=== PATIENT | male | born 1970 | race Caucasian/White ===

== ENCOUNTER 2021-05-13 11:44 | Inpatient (IN) | payer OTHER ==
[2021-05-13] MEDS ORDERED: LORazepam 2 MG TABLET PO ONE (13:24)
[2021-05-13] MEDS ORDERED: MAGNESIUM HYDROX 2400MG/30ML ORAL SUSPENSION 30 ML CUP PO PRN (13:24)
[2021-05-13] MEDS ORDERED: ACETAMINOPHEN 325 MG TABLET (FP) PO PRN ×2 (13:24)
[2021-05-13] MEDS ORDERED: BISMUTH SUBSALICYLATE 524 MG/30 ML PO PRN (13:24)
[2021-05-13] MEDS ORDERED: MAG HYDROX/AL HYDROX/SIMETH 30 ML UNIT-DOSE CUP PO PRN (13:24)
[2021-05-13] MEDS ORDERED: ONDANSETRON *ODT* 4 MG TABLET SL PRN (13:24)
[2021-05-13] MEDS ORDERED: LORazepam 1 MG TABLET PO PRN (13:24)
[2021-05-13] MEDS ORDERED: IBUPROFEN 400 MG TABLET (FP) PO PRN (13:24)
[2021-05-13] MEDS ORDERED: NICOTINE 10 MG CARTRIDGE (INHALER) IH PRN (13:24)
[2021-05-13] MEDS ORDERED: MENTHOL/PHENOL 1 EACH UD MM PRN (13:24)
[2021-05-13] MEDS ORDERED: MAGNESIUM CITRATE 300 ML BOTTLE PO PRN (13:24)
[2021-05-13] MEDS: hydrOXYzine PAMOATE 25 MG CAPSULE (FP) PO SCH ×2 (15:01→18:12)
[2021-05-13] MEDS: METHOCARBAMOL 500 MG TABLET PO PRN (15:01)
[2021-05-13] MEDS: NICOTINE 21 MG/24 HOURS TOPICAL PATCH TD SCH (15:04)
[2021-05-13] MEDS: LORazepam 2 MG TABLET PO SCH ×2 (18:12→23:02)
[2021-05-13] MEDS: INSULIN SLIDING SCALE (NOVOLOG) 1 VIAL SQ SCH ×2 (18:13→23:38)
[2021-05-13] MEDS: MELATONIN 5 MG TABLETS PO SCH (22:59)
[2021-05-13] MEDS: hydrOXYzine PAMOATE 25 MG CAPSULE (FP) PO PRN (22:59)
[2021-05-13] MEDS: INSULIN (LEVEMIR) 100 UNITS/ML UNITS SQ SCH (23:37)
[2021-05-13] MEDS: THIAMINE HCL 100 MG TABLET (FP) PO SCH (23:38)
[2021-05-14] MEDS: LORazepam 2 MG TABLET PO SCH ×4 (06:14→22:14)
[2021-05-14] MEDS: INSULIN SLIDING SCALE (NOVOLOG) 1 VIAL SQ SCH ×4 (07:10→22:17)
[2021-05-14] MEDS: methaDONE HCL 40 MG DISPERSABLE TABLET PO SCH (10:10)
[2021-05-14] MEDS: PRENATAL VITAMINS W/ FOLIC ACID TABLET (FP) PO SCH (10:14)
[2021-05-14] MEDS: hydrOXYzine PAMOATE 25 MG CAPSULE (FP) PO PRN (10:14)
[2021-05-14] MEDS: NICOTINE 21 MG/24 HOURS TOPICAL PATCH TD SCH (11:14)
[2021-05-14] MEDS: THIAMINE HCL 100 MG TABLET (FP) PO SCH (22:12)
[2021-05-14] MEDS: MELATONIN 5 MG TABLETS PO SCH (22:12)
[2021-05-14] MEDS: METHOCARBAMOL 500 MG TABLET PO PRN (22:13)
[2021-05-14] MEDS: INSULIN (LEVEMIR) 100 UNITS/ML UNITS SQ SCH (22:15)
[2021-05-15] MEDS: LORazepam 1 MG TABLET PO SCH ×4 (07:38→22:35)
[2021-05-15] MEDS: INSULIN SLIDING SCALE (NOVOLOG) 1 VIAL SQ SCH ×4 (07:41→22:45)
[2021-05-15] MEDS: methaDONE HCL 40 MG DISPERSABLE TABLET PO SCH (10:12)
[2021-05-15] MEDS: PRENATAL VITAMINS W/ FOLIC ACID TABLET (FP) PO SCH (10:13)
[2021-05-15] MEDS: METHOCARBAMOL 500 MG TABLET PO PRN (10:13)
[2021-05-15] MEDS: NICOTINE 21 MG/24 HOURS TOPICAL PATCH TD SCH (10:13)
[2021-05-15] MEDS: hydrOXYzine PAMOATE 25 MG CAPSULE (FP) PO PRN (10:13)
[2021-05-15] MEDS: MELATONIN 5 MG TABLETS PO SCH (22:35)
[2021-05-15] MEDS: THIAMINE HCL 100 MG TABLET (FP) PO SCH (22:35)
[2021-05-15] MEDS: INSULIN (LEVEMIR) 100 UNITS/ML UNITS SQ SCH (22:44)
[2021-05-16] MEDS ORDERED: LORazepam 0.5 MG TABLET PO PRN
[2021-05-16] MEDS: methaDONE HCL 40 MG DISPERSABLE TABLET PO SCH (06:25)
[2021-05-16] MEDS: LORazepam 0.5 MG TABLET PO SCH ×4 (06:26→22:16)
[2021-05-16] MEDS: INSULIN SLIDING SCALE (NOVOLOG) 1 VIAL SQ SCH ×4 (06:29→22:16)
[2021-05-16] MEDS: PRENATAL VITAMINS W/ FOLIC ACID TABLET (FP) PO SCH (10:34)
[2021-05-16] MEDS: NICOTINE 21 MG/24 HOURS TOPICAL PATCH TD SCH (10:34)
[2021-05-16 13:10] LABS: HEMATOCRIT 38.7 % (35.4-49); HEMOGLOBIN 12.8 GM/dL (11.7-16.9); MCH 29.2 pg (25.7-33.7); MCHC 33.1 g/dl (32.0-35.9); MEAN CELL VOLUME 88.1 fl (80-96); PLATELET COUNT 227 10^3/uL (134-434); RBC 4.39 M/mm3 (4.00-5.60); RDW 13.2 % (11.9-15.9); WHITE BLOOD COUNT 5.6 K/mm3 (4.0-10.0)
[2021-05-16 13:17] LABS: ALBUMIN 2.9 g/dl (3.4-5.0); BLOOD UREA NITROGEN 16.8 mg/dL (7-18); CALCIUM 8.8 mg/dL (8.5-10.1)
[2021-05-16 13:21] LABS: CREATININE 1.1 mg/dL (0.55-1.3)
[2021-05-16 13:22] LABS: BILIRUBIN,TOTAL 0.6 mg/dL (0.2-1); TOT PROT 7.7 g/dl (6.4-8.2)
[2021-05-16] MEDS: MELATONIN 5 MG TABLETS PO SCH (22:16)
[2021-05-16] MEDS: INSULIN (LEVEMIR) 100 UNITS/ML UNITS SQ SCH (22:16)
[2021-05-16] MEDS: METHOCARBAMOL 500 MG TABLET PO PRN (22:16)
[2021-05-16] MEDS: THIAMINE HCL 100 MG TABLET (FP) PO SCH (22:16)
[2021-05-17] MEDS ORDERED: LORazepam 0.5 MG TABLET PO ONE (05:00)
[2021-05-17] MEDS: methaDONE HCL 40 MG DISPERSABLE TABLET PO SCH (06:51)
[2021-05-17] MEDS: INSULIN SLIDING SCALE (NOVOLOG) 1 VIAL SQ SCH (06:58)
[2021-05-17 09:20] VITALS: BP 122/82; PULSE 88; TEMP 96.8
[2021-05-17] MEDS: NICOTINE 21 MG/24 HOURS TOPICAL PATCH TD SCH (10:06)
[2021-05-17] MEDS: PRENATAL VITAMINS W/ FOLIC ACID TABLET (FP) PO SCH (10:06)
== END 2021-05-17 11:25 | disposition other institution (70) | DRG 773 ==
LOC: YASAS 11:44 → Y3N 13:33
PROVIDERS: ADMIT Allergy & Immunology; ATTEND Allergy & Immunology
PROC: HZ2ZZZZ Detoxification Services for Substance Abuse Treatment (ICD-10-PCS; principal; 2021-05-13)
DX: F10.230 Alcohol dependence with withdrawal, uncomplicated (principal); F11.20 Opioid dependence, uncomplicated; F14.20 Cocaine dependence, uncomplicated; F17.210 Nicotine dependence, cigarettes, uncomplicated; E11.9 Type 2 diabetes mellitus without complications; B18.2 Chronic viral hepatitis C; Z79.4 Long term (current) use of insulin; Z91.14 Patient's other noncompliance with medication regimen; Z86.59 Personal history of other mental and behavioral disorders
CPT/HCPCS: 36415; 80053; 82962; 85027; 86780; C9803; U0003; U0005

== ENCOUNTER 2021-05-17 11:36 | Inpatient (IN) | payer OTHER ==
[2021-05-17] MEDS ORDERED: MAG HYDROX/AL HYDROX/SIMETH 30 ML UNIT-DOSE CUP PO PRN (11:54)
[2021-05-17] MEDS ORDERED: guaiFENesin 200 MG/10 ML 10 ML UNIT-DOSE CUPS PO PRN (11:54)
[2021-05-17] MEDS ORDERED: LOPERAMIDE HCL 2 MG CAPSULE PO PRN (11:54)
[2021-05-17] MEDS ORDERED: IBUPROFEN 400 MG TABLET (FP) PO PRN (11:54)
[2021-05-17] MEDS ORDERED: ACETAMINOPHEN 325 MG TABLET (FP) PO PRN (11:54)
[2021-05-17] MEDS ORDERED: NICOTINE 10 MG CARTRIDGE (INHALER) IH PRN ×2 (11:54→12:01)
[2021-05-17] MEDS ORDERED: P-EPHED 60MG/TRIPROLIDI 2.5MG TABLET PO PRN (11:54)
[2021-05-17] MEDS ORDERED: MAGNESIUM CITRATE 300 ML BOTTLE PO PRN (11:54)
[2021-05-17] MEDS ORDERED: MENTHOL/PHENOL 1 EACH UD MM PRN (11:54)
[2021-05-17] MEDS ORDERED: MAGNESIUM HYDROX 2400MG/30ML ORAL SUSPENSION 30 ML CUP PO PRN (11:54)
[2021-05-17] MEDS: INSULIN SLIDING SCALE (NOVOLOG) 1 VIAL SQ SCH ×2 (16:32→21:20)
[2021-05-17] MEDS ORDERED: INSULIN (NOVOLOG) ASPART 100 UNITS/ML 10ML VIAL ONE (16:33)
[2021-05-17] MEDS: MELATONIN 5 MG TABLETS PO SCH (21:16)
[2021-05-17] MEDS: THIAMINE HCL 100 MG TABLET (FP) PO SCH (21:16)
[2021-05-17] MEDS: INSULIN (LEVEMIR) 100 UNITS/ML UNITS SQ SCH (21:20)
[2021-05-18] MEDS: methaDONE HCL 40 MG DISPERSABLE TABLET PO SCH (06:15)
[2021-05-18] MEDS: INSULIN SLIDING SCALE (NOVOLOG) 1 VIAL SQ SCH ×4 (06:17→21:37)
[2021-05-18] MEDS: PRENATAL VITAMINS W/ FOLIC ACID TABLET (FP) PO SCH (10:20)
[2021-05-18] MEDS: hydrOXYzine PAMOATE 25 MG CAPSULE (FP) PO PRN (10:21)
[2021-05-18] MEDS: NICOTINE 7 MG/24 HOURS TOPICAL PATCH TD SCH (10:21)
[2021-05-18] MEDS ORDERED: INSULIN (NOVOLOG) ASPART 100 UNITS/ML 10ML VIAL ONE ×2 (13:32→21:40)
[2021-05-18] MEDS: INSULIN (LEVEMIR) 100 UNITS/ML UNITS SQ SCH (21:40)
[2021-05-18] MEDS: THIAMINE HCL 100 MG TABLET (FP) PO SCH (21:41)
[2021-05-18] MEDS: MELATONIN 5 MG TABLETS PO SCH (21:42)
[2021-05-19] MEDS: methaDONE HCL 40 MG DISPERSABLE TABLET PO SCH (06:35)
[2021-05-19] MEDS: INSULIN SLIDING SCALE (NOVOLOG) 1 VIAL SQ SCH ×4 (07:37→21:32)
[2021-05-19] MEDS ORDERED: PT OWN MED DRAWER 7, Y5N ONE (09:08)
[2021-05-19] MEDS: PRENATAL VITAMINS W/ FOLIC ACID TABLET (FP) PO SCH (10:07)
[2021-05-19] MEDS: hydrOXYzine PAMOATE 25 MG CAPSULE (FP) PO PRN (10:08)
[2021-05-19] MEDS: NICOTINE 7 MG/24 HOURS TOPICAL PATCH TD SCH (10:08)
[2021-05-19] MEDS ORDERED: INSULIN (NOVOLOG) ASPART 100 UNITS/ML 10ML VIAL ONE ×3 (12:05→21:54)
[2021-05-19] MEDS: INSULIN (LEVEMIR) 100 UNITS/ML UNITS SQ SCH (21:31)
[2021-05-19] MEDS: MELATONIN 5 MG TABLETS PO SCH (21:31)
[2021-05-19] MEDS: THIAMINE HCL 100 MG TABLET (FP) PO SCH (21:31)
[2021-05-20] MEDS: methaDONE HCL 40 MG DISPERSABLE TABLET PO SCH (06:32)
[2021-05-20] MEDS: INSULIN SLIDING SCALE (NOVOLOG) 1 VIAL SQ SCH ×4 (06:34→21:20)
[2021-05-20] MEDS: hydrOXYzine PAMOATE 25 MG CAPSULE (FP) PO PRN ×2 (10:03→21:18)
[2021-05-20] MEDS: NICOTINE 7 MG/24 HOURS TOPICAL PATCH TD SCH (10:03)
[2021-05-20] MEDS: PRENATAL VITAMINS W/ FOLIC ACID TABLET (FP) PO SCH (10:03)
[2021-05-20] MEDS ORDERED: INSULIN (NOVOLOG) ASPART 100 UNITS/ML 10ML VIAL ONE ×3 (11:34→21:20)
[2021-05-20] MEDS: THIAMINE HCL 100 MG TABLET (FP) PO SCH (21:17)
[2021-05-20] MEDS: MELATONIN 5 MG TABLETS PO SCH (21:17)
[2021-05-20] MEDS: INSULIN (LEVEMIR) 100 UNITS/ML UNITS SQ SCH (21:20)
[2021-05-21] MEDS: methaDONE HCL 40 MG DISPERSABLE TABLET PO SCH (06:47)
[2021-05-21] MEDS: INSULIN SLIDING SCALE (NOVOLOG) 1 VIAL SQ SCH ×4 (06:50→21:13)
[2021-05-21] MEDS: hydrOXYzine PAMOATE 25 MG CAPSULE (FP) PO PRN ×2 (06:52→21:12)
[2021-05-21] MEDS: NICOTINE 7 MG/24 HOURS TOPICAL PATCH TD SCH (09:52)
[2021-05-21] MEDS: PRENATAL VITAMINS W/ FOLIC ACID TABLET (FP) PO SCH (09:52)
[2021-05-21] MEDS ORDERED: INSULIN (NOVOLOG) ASPART 100 UNITS/ML 10ML VIAL ONE ×3 (11:39→21:35)
[2021-05-21] MEDS: MELATONIN 5 MG TABLETS PO SCH (21:10)
[2021-05-21] MEDS: THIAMINE HCL 100 MG TABLET (FP) PO SCH (21:10)
[2021-05-21] MEDS: INSULIN (LEVEMIR) 100 UNITS/ML UNITS SQ SCH (21:13)
[2021-05-22] MEDS: methaDONE HCL 40 MG DISPERSABLE TABLET PO SCH (06:09)
[2021-05-22] MEDS: INSULIN SLIDING SCALE (NOVOLOG) 1 VIAL SQ SCH ×4 (06:10→21:20)
[2021-05-22] MEDS: NICOTINE 7 MG/24 HOURS TOPICAL PATCH TD SCH (09:45)
[2021-05-22] MEDS: hydrOXYzine PAMOATE 25 MG CAPSULE (FP) PO PRN ×2 (09:45→21:19)
[2021-05-22] MEDS: PRENATAL VITAMINS W/ FOLIC ACID TABLET (FP) PO SCH (09:45)
[2021-05-22] MEDS ORDERED: INSULIN (NOVOLOG) ASPART 100 UNITS/ML 10ML VIAL ONE (12:04)
[2021-05-22] MEDS: MELATONIN 5 MG TABLETS PO SCH (21:18)
[2021-05-22] MEDS: THIAMINE HCL 100 MG TABLET (FP) PO SCH (21:18)
[2021-05-22] MEDS: INSULIN (LEVEMIR) 100 UNITS/ML UNITS SQ SCH (22:28)
[2021-05-23] MEDS: INSULIN SLIDING SCALE (NOVOLOG) 1 VIAL SQ SCH ×4 (06:03→22:11)
[2021-05-23] MEDS: methaDONE HCL 40 MG DISPERSABLE TABLET PO SCH (06:03)
[2021-05-23] MEDS: hydrOXYzine PAMOATE 25 MG CAPSULE (FP) PO PRN ×2 (10:07→22:11)
[2021-05-23] MEDS: PRENATAL VITAMINS W/ FOLIC ACID TABLET (FP) PO SCH (10:07)
[2021-05-23] MEDS: NICOTINE 7 MG/24 HOURS TOPICAL PATCH TD SCH (10:08)
[2021-05-23] MEDS ORDERED: INSULIN (NOVOLOG) ASPART 100 UNITS/ML 10ML VIAL ONE (12:22)
[2021-05-23] MEDS: MELATONIN 5 MG TABLETS PO SCH (22:11)
[2021-05-23] MEDS: THIAMINE HCL 100 MG TABLET (FP) PO SCH (22:11)
[2021-05-23] MEDS: INSULIN (LEVEMIR) 100 UNITS/ML UNITS SQ SCH (22:12)
[2021-05-24] MEDS: methaDONE HCL 40 MG DISPERSABLE TABLET PO SCH (06:20)
[2021-05-24] MEDS: INSULIN SLIDING SCALE (NOVOLOG) 1 VIAL SQ SCH ×4 (06:22→21:28)
[2021-05-24] MEDS: PRENATAL VITAMINS W/ FOLIC ACID TABLET (FP) PO SCH (09:57)
[2021-05-24] MEDS: hydrOXYzine PAMOATE 25 MG CAPSULE (FP) PO PRN ×2 (09:58→21:27)
[2021-05-24] MEDS: NICOTINE 7 MG/24 HOURS TOPICAL PATCH TD SCH (10:55)
[2021-05-24] MEDS ORDERED: INSULIN (NOVOLOG) ASPART 100 UNITS/ML 10ML VIAL ONE (12:25)
[2021-05-24] MEDS: MELATONIN 5 MG TABLETS PO SCH (21:27)
[2021-05-24] MEDS: THIAMINE HCL 100 MG TABLET (FP) PO SCH (21:27)
[2021-05-24] MEDS: INSULIN (LEVEMIR) 100 UNITS/ML UNITS SQ SCH (21:28)
[2021-05-25] MEDS: methaDONE HCL 40 MG DISPERSABLE TABLET PO SCH (06:41)
[2021-05-25] MEDS: INSULIN SLIDING SCALE (NOVOLOG) 1 VIAL SQ SCH ×4 (06:43→21:08)
[2021-05-25] MEDS: PRENATAL VITAMINS W/ FOLIC ACID TABLET (FP) PO SCH (10:17)
[2021-05-25] MEDS: hydrOXYzine PAMOATE 25 MG CAPSULE (FP) PO PRN ×2 (10:17→21:07)
[2021-05-25] MEDS: NICOTINE 7 MG/24 HOURS TOPICAL PATCH TD SCH (10:18)
[2021-05-25] MEDS ORDERED: INSULIN (NOVOLOG) ASPART 100 UNITS/ML 10ML VIAL ONE ×2 (16:32→21:56)
[2021-05-25] MEDS: THIAMINE HCL 100 MG TABLET (FP) PO SCH (21:06)
[2021-05-25] MEDS: MELATONIN 5 MG TABLETS PO SCH (21:06)
[2021-05-25] MEDS: INSULIN (LEVEMIR) 100 UNITS/ML UNITS SQ SCH (21:08)
[2021-05-26] MEDS: methaDONE HCL 40 MG DISPERSABLE TABLET PO SCH (06:23)
[2021-05-26] MEDS: INSULIN SLIDING SCALE (NOVOLOG) 1 VIAL SQ SCH ×4 (06:25→21:46)
[2021-05-26] MEDS: PRENATAL VITAMINS W/ FOLIC ACID TABLET (FP) PO SCH (09:51)
[2021-05-26] MEDS: NICOTINE 7 MG/24 HOURS TOPICAL PATCH TD SCH (09:52)
[2021-05-26] MEDS: hydrOXYzine PAMOATE 25 MG CAPSULE (FP) PO PRN ×2 (09:52→21:45)
[2021-05-26] MEDS: THIAMINE HCL 100 MG TABLET (FP) PO SCH (21:45)
[2021-05-26] MEDS: MELATONIN 5 MG TABLETS PO SCH (21:45)
[2021-05-26] MEDS: INSULIN (LEVEMIR) 100 UNITS/ML UNITS SQ SCH (21:47)
[2021-05-27] MEDS: methaDONE HCL 40 MG DISPERSABLE TABLET PO SCH (06:33)
[2021-05-27] MEDS: INSULIN SLIDING SCALE (NOVOLOG) 1 VIAL SQ SCH ×4 (06:35→22:45)
[2021-05-27] MEDS: hydrOXYzine PAMOATE 25 MG CAPSULE (FP) PO PRN ×2 (10:12→21:06)
[2021-05-27] MEDS: NICOTINE 7 MG/24 HOURS TOPICAL PATCH TD SCH (10:12)
[2021-05-27] MEDS: PRENATAL VITAMINS W/ FOLIC ACID TABLET (FP) PO SCH (10:12)
[2021-05-27] MEDS ORDERED: INSULIN (NOVOLOG) ASPART 100 UNITS/ML 10ML VIAL ONE (11:51)
[2021-05-27] MEDS: THIAMINE HCL 100 MG TABLET (FP) PO SCH (21:06)
[2021-05-27] MEDS: MELATONIN 5 MG TABLETS PO SCH (21:06)
[2021-05-27] MEDS: INSULIN (LEVEMIR) 100 UNITS/ML UNITS SQ SCH (21:07)
[2021-05-28] MEDS: methaDONE HCL 40 MG DISPERSABLE TABLET PO SCH (06:21)
[2021-05-28] MEDS: INSULIN SLIDING SCALE (NOVOLOG) 1 VIAL SQ SCH ×4 (06:23→22:01)
[2021-05-28] MEDS: hydrOXYzine PAMOATE 25 MG CAPSULE (FP) PO PRN ×2 (09:59→21:26)
[2021-05-28] MEDS: PRENATAL VITAMINS W/ FOLIC ACID TABLET (FP) PO SCH (09:59)
[2021-05-28] MEDS: NICOTINE 7 MG/24 HOURS TOPICAL PATCH TD SCH (10:00)
[2021-05-28] MEDS ORDERED: INSULIN (NOVOLOG) ASPART 100 UNITS/ML 10ML VIAL ONE (11:58)
[2021-05-28] MEDS: THIAMINE HCL 100 MG TABLET (FP) PO SCH (21:27)
[2021-05-28] MEDS: MELATONIN 5 MG TABLETS PO SCH (21:27)
[2021-05-28] MEDS: INSULIN (LEVEMIR) 100 UNITS/ML UNITS SQ SCH (22:02)
[2021-05-29] MEDS: methaDONE HCL 40 MG DISPERSABLE TABLET PO SCH (06:33)
[2021-05-29] MEDS: INSULIN SLIDING SCALE (NOVOLOG) 1 VIAL SQ SCH ×4 (06:36→21:07)
[2021-05-29] MEDS: PRENATAL VITAMINS W/ FOLIC ACID TABLET (FP) PO SCH (10:26)
[2021-05-29] MEDS: NICOTINE 7 MG/24 HOURS TOPICAL PATCH TD SCH (10:26)
[2021-05-29] MEDS: hydrOXYzine PAMOATE 25 MG CAPSULE (FP) PO PRN ×2 (10:28→21:05)
[2021-05-29] MEDS: THIAMINE HCL 100 MG TABLET (FP) PO SCH (21:05)
[2021-05-29] MEDS: MELATONIN 5 MG TABLETS PO SCH (21:05)
[2021-05-29] MEDS ORDERED: INSULIN (NOVOLOG) ASPART 100 UNITS/ML 10ML VIAL ONE (21:06)
[2021-05-29] MEDS: INSULIN (LEVEMIR) 100 UNITS/ML UNITS SQ SCH (21:07)
[2021-05-30] MEDS: methaDONE HCL 40 MG DISPERSABLE TABLET PO SCH (06:32)
[2021-05-30] MEDS: INSULIN SLIDING SCALE (NOVOLOG) 1 VIAL SQ SCH ×4 (06:35→21:38)
[2021-05-30] MEDS: NICOTINE 7 MG/24 HOURS TOPICAL PATCH TD SCH (09:54)
[2021-05-30] MEDS: PRENATAL VITAMINS W/ FOLIC ACID TABLET (FP) PO SCH (09:54)
[2021-05-30] MEDS: hydrOXYzine PAMOATE 25 MG CAPSULE (FP) PO PRN ×2 (09:54→21:36)
[2021-05-30] MEDS ORDERED: INSULIN (NOVOLOG) ASPART 100 UNITS/ML 10ML VIAL ONE ×3 (12:18→16:30)
[2021-05-30] MEDS: MELATONIN 5 MG TABLETS PO SCH (21:36)
[2021-05-30] MEDS: THIAMINE HCL 100 MG TABLET (FP) PO SCH (21:36)
[2021-05-30] MEDS: INSULIN (LEVEMIR) 100 UNITS/ML UNITS SQ SCH (21:38)
[2021-05-31] MEDS: methaDONE HCL 40 MG DISPERSABLE TABLET PO SCH (06:48)
[2021-05-31] MEDS: INSULIN SLIDING SCALE (NOVOLOG) 1 VIAL SQ SCH ×4 (06:54→21:10)
[2021-05-31] MEDS: PRENATAL VITAMINS W/ FOLIC ACID TABLET (FP) PO SCH (10:41)
[2021-05-31] MEDS: hydrOXYzine PAMOATE 25 MG CAPSULE (FP) PO PRN ×2 (10:41→21:08)
[2021-05-31] MEDS: NICOTINE 7 MG/24 HOURS TOPICAL PATCH TD SCH (10:42)
[2021-05-31] MEDS: THIAMINE HCL 100 MG TABLET (FP) PO SCH (21:08)
[2021-05-31] MEDS: MELATONIN 5 MG TABLETS PO SCH (21:08)
[2021-05-31] MEDS: INSULIN (LEVEMIR) 100 UNITS/ML UNITS SQ SCH (21:10)
[2021-06-01] MEDS: methaDONE HCL 40 MG DISPERSABLE TABLET PO SCH (06:20)
[2021-06-01] MEDS: INSULIN SLIDING SCALE (NOVOLOG) 1 VIAL SQ SCH ×4 (06:22→21:09)
[2021-06-01] MEDS: NICOTINE 7 MG/24 HOURS TOPICAL PATCH TD SCH (10:05)
[2021-06-01] MEDS: PRENATAL VITAMINS W/ FOLIC ACID TABLET (FP) PO SCH (10:05)
[2021-06-01] MEDS: AMMONIUM LACTATE 12% LOTION 225 GM BOTTLE TP PRN (10:06)
[2021-06-01] MEDS: hydrOXYzine PAMOATE 25 MG CAPSULE (FP) PO PRN ×3 (10:07→21:06)
[2021-06-01] MEDS: THIAMINE HCL 100 MG TABLET (FP) PO SCH (21:06)
[2021-06-01] MEDS: MELATONIN 5 MG TABLETS PO SCH (21:06)
[2021-06-01] MEDS ORDERED: INSULIN (NOVOLOG) ASPART 100 UNITS/ML 10ML VIAL ONE (21:08)
[2021-06-01] MEDS: INSULIN (LEVEMIR) 100 UNITS/ML UNITS SQ SCH (21:09)
[2021-06-02] MEDS: methaDONE HCL 40 MG DISPERSABLE TABLET PO SCH (06:32)
[2021-06-02] MEDS: INSULIN SLIDING SCALE (NOVOLOG) 1 VIAL SQ SCH ×4 (06:35→21:46)
[2021-06-02] MEDS: hydrOXYzine PAMOATE 25 MG CAPSULE (FP) PO PRN ×4 (06:35→21:46)
[2021-06-02] MEDS: NICOTINE 7 MG/24 HOURS TOPICAL PATCH TD SCH (10:23)
[2021-06-02] MEDS: PRENATAL VITAMINS W/ FOLIC ACID TABLET (FP) PO SCH (10:23)
[2021-06-02] MEDS: THIAMINE HCL 100 MG TABLET (FP) PO SCH (21:46)
[2021-06-02] MEDS: MELATONIN 5 MG TABLETS PO SCH (21:47)
[2021-06-02] MEDS: AMMONIUM LACTATE 12% LOTION 225 GM BOTTLE TP PRN (21:47)
[2021-06-02] MEDS: INSULIN (LEVEMIR) 100 UNITS/ML UNITS SQ SCH (21:47)
[2021-06-03] MEDS: methaDONE HCL 40 MG DISPERSABLE TABLET PO SCH (06:25)
[2021-06-03] MEDS: INSULIN SLIDING SCALE (NOVOLOG) 1 VIAL SQ SCH ×4 (06:26→21:06)
[2021-06-03] MEDS: PRENATAL VITAMINS W/ FOLIC ACID TABLET (FP) PO SCH (09:34)
[2021-06-03] MEDS: hydrOXYzine PAMOATE 25 MG CAPSULE (FP) PO PRN ×3 (09:34→21:04)
[2021-06-03] MEDS: NICOTINE 7 MG/24 HOURS TOPICAL PATCH TD SCH (09:34)
[2021-06-03] MEDS ORDERED: INSULIN (NOVOLOG) ASPART 100 UNITS/ML 10ML VIAL ONE (16:26)
[2021-06-03] MEDS: MELATONIN 5 MG TABLETS PO SCH (21:04)
[2021-06-03] MEDS: THIAMINE HCL 100 MG TABLET (FP) PO SCH (21:04)
[2021-06-03] MEDS: INSULIN (LEVEMIR) 100 UNITS/ML UNITS SQ SCH (21:06)
[2021-06-04] MEDS: methaDONE HCL 40 MG DISPERSABLE TABLET PO SCH (06:23)
[2021-06-04] MEDS: hydrOXYzine PAMOATE 25 MG CAPSULE (FP) PO PRN ×4 (06:24→21:33)
[2021-06-04] MEDS: INSULIN SLIDING SCALE (NOVOLOG) 1 VIAL SQ SCH ×4 (06:28→21:36)
[2021-06-04] MEDS: NICOTINE 7 MG/24 HOURS TOPICAL PATCH TD SCH (10:03)
[2021-06-04] MEDS: PRENATAL VITAMINS W/ FOLIC ACID TABLET (FP) PO SCH (10:03)
[2021-06-04] MEDS ORDERED: INSULIN (NOVOLOG) ASPART 100 UNITS/ML 10ML VIAL ONE (16:46)
[2021-06-04] MEDS: THIAMINE HCL 100 MG TABLET (FP) PO SCH (21:33)
[2021-06-04] MEDS: MELATONIN 5 MG TABLETS PO SCH (21:34)
[2021-06-04] MEDS: INSULIN (LEVEMIR) 100 UNITS/ML UNITS SQ SCH (21:36)
[2021-06-05] MEDS: methaDONE HCL 40 MG DISPERSABLE TABLET PO SCH (06:19)
[2021-06-05] MEDS: hydrOXYzine PAMOATE 25 MG CAPSULE (FP) PO PRN ×3 (06:22→21:10)
[2021-06-05] MEDS: INSULIN SLIDING SCALE (NOVOLOG) 1 VIAL SQ SCH ×4 (06:25→21:11)
[2021-06-05] MEDS ORDERED: INSULIN (NOVOLOG) ASPART 100 UNITS/ML 10ML VIAL ONE (07:16)
[2021-06-05] MEDS: NICOTINE 7 MG/24 HOURS TOPICAL PATCH TD SCH (10:38)
[2021-06-05] MEDS: PRENATAL VITAMINS W/ FOLIC ACID TABLET (FP) PO SCH (10:38)
[2021-06-05] MEDS: AMMONIUM LACTATE 12% LOTION 225 GM BOTTLE TP PRN (10:39)
[2021-06-05] MEDS: MELATONIN 5 MG TABLETS PO SCH (21:10)
[2021-06-05] MEDS: THIAMINE HCL 100 MG TABLET (FP) PO SCH (21:10)
[2021-06-05] MEDS: INSULIN (LEVEMIR) 100 UNITS/ML UNITS SQ SCH (21:11)
[2021-06-06] MEDS: hydrOXYzine PAMOATE 25 MG CAPSULE (FP) PO PRN ×3 (06:24→22:02)
[2021-06-06] MEDS: methaDONE HCL 40 MG DISPERSABLE TABLET PO SCH (06:24)
[2021-06-06] MEDS: INSULIN SLIDING SCALE (NOVOLOG) 1 VIAL SQ SCH ×4 (07:47→22:05)
[2021-06-06] MEDS: NICOTINE 7 MG/24 HOURS TOPICAL PATCH TD SCH (09:49)
[2021-06-06] MEDS: PRENATAL VITAMINS W/ FOLIC ACID TABLET (FP) PO SCH (09:49)
[2021-06-06] MEDS: MELATONIN 5 MG TABLETS PO SCH (22:02)
[2021-06-06] MEDS: THIAMINE HCL 100 MG TABLET (FP) PO SCH (22:02)
[2021-06-06] MEDS: INSULIN (LEVEMIR) 100 UNITS/ML UNITS SQ SCH (22:04)
[2021-06-07] MEDS: hydrOXYzine PAMOATE 25 MG CAPSULE (FP) PO PRN ×4 (06:13→21:09)
[2021-06-07] MEDS: methaDONE HCL 40 MG DISPERSABLE TABLET PO SCH (06:13)
[2021-06-07] MEDS: INSULIN SLIDING SCALE (NOVOLOG) 1 VIAL SQ SCH ×4 (06:15→21:13)
[2021-06-07] MEDS: PRENATAL VITAMINS W/ FOLIC ACID TABLET (FP) PO SCH (10:32)
[2021-06-07] MEDS: NICOTINE 7 MG/24 HOURS TOPICAL PATCH TD SCH (10:33)
[2021-06-07] MEDS ORDERED: INSULIN (NOVOLOG) ASPART 100 UNITS/ML 10ML VIAL ONE (12:02)
[2021-06-07] MEDS: MELATONIN 5 MG TABLETS PO SCH (21:09)
[2021-06-07] MEDS: THIAMINE HCL 100 MG TABLET (FP) PO SCH (21:09)
[2021-06-07] MEDS: INSULIN (LEVEMIR) 100 UNITS/ML UNITS SQ SCH (21:13)
[2021-06-08] MEDS: methaDONE HCL 40 MG DISPERSABLE TABLET PO SCH (06:28)
[2021-06-08] MEDS: INSULIN SLIDING SCALE (NOVOLOG) 1 VIAL SQ SCH ×4 (06:30→21:27)
[2021-06-08] MEDS: PRENATAL VITAMINS W/ FOLIC ACID TABLET (FP) PO SCH (09:59)
[2021-06-08] MEDS: NICOTINE 7 MG/24 HOURS TOPICAL PATCH TD SCH (09:59)
[2021-06-08] MEDS: hydrOXYzine PAMOATE 25 MG CAPSULE (FP) PO PRN ×2 (11:47→21:26)
[2021-06-08] MEDS ORDERED: INSULIN (NOVOLOG) ASPART 100 UNITS/ML 10ML VIAL ONE (16:27)
[2021-06-08] MEDS: THIAMINE HCL 100 MG TABLET (FP) PO SCH (21:26)
[2021-06-08] MEDS: MELATONIN 5 MG TABLETS PO SCH (21:26)
[2021-06-08] MEDS: INSULIN (LEVEMIR) 100 UNITS/ML UNITS SQ SCH (21:28)
[2021-06-09] MEDS: hydrOXYzine PAMOATE 25 MG CAPSULE (FP) PO PRN ×4 (06:01→21:03)
[2021-06-09] MEDS: methaDONE HCL 40 MG DISPERSABLE TABLET PO SCH (06:01)
[2021-06-09] MEDS: INSULIN SLIDING SCALE (NOVOLOG) 1 VIAL SQ SCH ×4 (06:03→21:06)
[2021-06-09] MEDS: PRENATAL VITAMINS W/ FOLIC ACID TABLET (FP) PO SCH (11:37)
[2021-06-09] MEDS: NICOTINE 7 MG/24 HOURS TOPICAL PATCH TD SCH (11:37)
[2021-06-09] MEDS ORDERED: INSULIN (NOVOLOG) ASPART 100 UNITS/ML 10ML VIAL ONE (11:40)
[2021-06-09] MEDS: AMMONIUM LACTATE 12% LOTION 225 GM BOTTLE TP PRN (16:52)
[2021-06-09] MEDS: MELATONIN 5 MG TABLETS PO SCH (21:03)
[2021-06-09] MEDS: THIAMINE HCL 100 MG TABLET (FP) PO SCH (21:03)
[2021-06-09] MEDS: INSULIN (LEVEMIR) 100 UNITS/ML UNITS SQ SCH (21:05)
[2021-06-10] MEDS: methaDONE HCL 40 MG DISPERSABLE TABLET PO SCH (06:12)
[2021-06-10] MEDS: INSULIN SLIDING SCALE (NOVOLOG) 1 VIAL SQ SCH ×4 (06:13→21:56)
[2021-06-10] MEDS: hydrOXYzine PAMOATE 25 MG CAPSULE (FP) PO PRN ×4 (06:13→21:55)
[2021-06-10] MEDS ORDERED: INSULIN (NOVOLOG) ASPART 100 UNITS/ML 10ML VIAL ONE ×2 (06:13→22:15)
[2021-06-10] MEDS: PRENATAL VITAMINS W/ FOLIC ACID TABLET (FP) PO SCH (10:30)
[2021-06-10] MEDS: NICOTINE 7 MG/24 HOURS TOPICAL PATCH TD SCH (10:57)
[2021-06-10] MEDS: MELATONIN 5 MG TABLETS PO SCH (21:54)
[2021-06-10] MEDS: THIAMINE HCL 100 MG TABLET (FP) PO SCH (21:55)
[2021-06-10] MEDS: INSULIN (LEVEMIR) 100 UNITS/ML UNITS SQ SCH (21:56)
[2021-06-10] MEDS ORDERED: INSULIN (LEVEMIR) 100 UNITS/ML UNITS SQ ONE (22:15)
[2021-06-11] MEDS: hydrOXYzine PAMOATE 25 MG CAPSULE (FP) PO PRN ×4 (06:17→21:07)
[2021-06-11] MEDS: methaDONE HCL 40 MG DISPERSABLE TABLET PO SCH (06:17)
[2021-06-11] MEDS ORDERED: INSULIN (NOVOLOG) ASPART 100 UNITS/ML 10ML VIAL ONE (06:20)
[2021-06-11] MEDS: INSULIN SLIDING SCALE (NOVOLOG) 1 VIAL SQ SCH ×4 (06:23→21:08)
[2021-06-11] MEDS: NICOTINE 7 MG/24 HOURS TOPICAL PATCH TD SCH (10:40)
[2021-06-11] MEDS: PRENATAL VITAMINS W/ FOLIC ACID TABLET (FP) PO SCH (10:45)
[2021-06-11] MEDS: MELATONIN 5 MG TABLETS PO SCH (21:07)
[2021-06-11] MEDS: THIAMINE HCL 100 MG TABLET (FP) PO SCH (21:07)
[2021-06-11] MEDS: INSULIN (LEVEMIR) 100 UNITS/ML UNITS SQ SCH (21:07)
[2021-06-12] MEDS: methaDONE HCL 40 MG DISPERSABLE TABLET PO SCH (06:06)
[2021-06-12] MEDS: hydrOXYzine PAMOATE 25 MG CAPSULE (FP) PO PRN ×4 (06:07→21:36)
[2021-06-12] MEDS: INSULIN SLIDING SCALE (NOVOLOG) 1 VIAL SQ SCH ×4 (06:08→21:39)
[2021-06-12] MEDS: NICOTINE 7 MG/24 HOURS TOPICAL PATCH TD SCH (10:28)
[2021-06-12] MEDS: PRENATAL VITAMINS W/ FOLIC ACID TABLET (FP) PO SCH ×2 (10:28→12:40)
[2021-06-12] MEDS ORDERED: INSULIN (NOVOLOG) ASPART 100 UNITS/ML 10ML VIAL ONE ×2 (16:28→21:41)
[2021-06-12] MEDS: MELATONIN 5 MG TABLETS PO SCH (21:36)
[2021-06-12] MEDS: THIAMINE HCL 100 MG TABLET (FP) PO SCH (21:36)
[2021-06-12] MEDS: INSULIN (LEVEMIR) 100 UNITS/ML UNITS SQ SCH (21:39)
[2021-06-13] MEDS: methaDONE HCL 40 MG DISPERSABLE TABLET PO SCH (06:33)
[2021-06-13] MEDS: hydrOXYzine PAMOATE 25 MG CAPSULE (FP) PO PRN ×4 (06:34→21:03)
[2021-06-13] MEDS: INSULIN SLIDING SCALE (NOVOLOG) 1 VIAL SQ SCH ×4 (06:35→21:05)
[2021-06-13] MEDS: NICOTINE 7 MG/24 HOURS TOPICAL PATCH TD SCH (10:40)
[2021-06-13] MEDS: PRENATAL VITAMINS W/ FOLIC ACID TABLET (FP) PO SCH (10:41)
[2021-06-13] MEDS ORDERED: INSULIN (NOVOLOG) ASPART 100 UNITS/ML 10ML VIAL ONE ×2 (16:42→21:35)
[2021-06-13] MEDS: THIAMINE HCL 100 MG TABLET (FP) PO SCH (21:03)
[2021-06-13] MEDS: MELATONIN 5 MG TABLETS PO SCH (21:03)
[2021-06-13] MEDS: INSULIN (LEVEMIR) 100 UNITS/ML UNITS SQ SCH (21:06)
[2021-06-14] MEDS: hydrOXYzine PAMOATE 25 MG CAPSULE (FP) PO PRN (06:19)
[2021-06-14] MEDS: methaDONE HCL 40 MG DISPERSABLE TABLET PO SCH (06:19)
[2021-06-14] MEDS: INSULIN SLIDING SCALE (NOVOLOG) 1 VIAL SQ SCH (06:21)
[2021-06-14 07:06] VITALS: BP 109/60; PULSE 64; TEMP 98.8
== END 2021-06-14 09:21 | disposition home or self-care (01) | DRG 772 ==
LOC: YASAS 11:36 → Y3W 11:38
PROVIDERS: ADMIT Allergy & Immunology; ATTEND Allergy & Immunology
PROC: HZ42ZZZ Group Counseling for Substance Abuse Treatment, Cognitive-Behavioral (ICD-10-PCS; principal; 2021-05-17)
DX: F10.20 Alcohol dependence, uncomplicated (principal); F11.20 Opioid dependence, uncomplicated; F14.20 Cocaine dependence, uncomplicated; F17.210 Nicotine dependence, cigarettes, uncomplicated; E11.9 Type 2 diabetes mellitus without complications; B18.2 Chronic viral hepatitis C; Z79.4 Long term (current) use of insulin
CPT/HCPCS: 82962

== ENCOUNTER 2022-06-22 12:00 | Inpatient (IN) | payer OTHER ==
[2022-06-22 13:00] VITALS: BMI 26.6
[2022-06-22] MEDS ORDERED: METHOCARBAMOL 500 MG TABLET PO PRN (13:55)
[2022-06-22] MEDS ORDERED: NICOTINE 10 MG CARTRIDGE (INHALER) IH PRN (13:55)
[2022-06-22] MEDS ORDERED: MAGNESIUM HYDROX 2400MG/30ML ORAL SUSPENSION 30 ML CUP PO PRN (13:55)
[2022-06-22] MEDS ORDERED: MAG HYDROX/AL HYDROX/SIMETH 30 ML UNIT-DOSE CUP PO PRN (13:55)
[2022-06-22] MEDS ORDERED: IBUPROFEN 400 MG TABLET (FP) PO PRN (13:55)
[2022-06-22] MEDS ORDERED: MAGNESIUM CITRATE 300 ML BOTTLE PO PRN (13:55)
[2022-06-22] MEDS ORDERED: LOPERAMIDE HCL 2 MG CAPSULE PO PRN (13:55)
[2022-06-22] MEDS ORDERED: NALOXONE HCL (KLOXXADO) 8 MG SPRAY NS PRN (13:55)
[2022-06-22] MEDS ORDERED: ONDANSETRON *ODT* 4 MG TABLET SL PRN (13:55)
[2022-06-22] MEDS ORDERED: DICYCLOMINE HCL 10 MG CAPSULE PO PRN (13:55)
[2022-06-22] MEDS ORDERED: BISMUTH SUBSALICYLATE 524 MG/30 ML PO PRN (13:55)
[2022-06-22] MEDS ORDERED: ACETAMINOPHEN 325 MG TABLET (FP) PO PRN ×2 (13:55)
[2022-06-22] MEDS ORDERED: BENZOCAINE/MENTHOL (CHLORASEPTIC ) LOZENGE MM PRN (13:55)
[2022-06-22] MEDS ORDERED: IBUPROFEN 600 MG TABLET (FP) PO PRN (13:55)
[2022-06-22 18:10] LABS: HEMATOCRIT 38.9 % (35.4-49); MCH 30.5 pg (25.7-33.7); MCHC 33.5 g/dl (32.0-35.9); MEAN CELL VOLUME 90.9 fl (80-96); MEAN PLT VOLUME 8.1 fl (7.5-11.1); PLATELET COUNT 285 10^3/uL (134-434); RBC 4.28 M/mm3 (4.00-5.60); RDW 14.3 % (11.9-15.9)
[2022-06-22 18:15] LABS: ALBUMIN 3.8 g/dl (3.4-5.0); CALCIUM 9.4 mg/dL (8.5-10.1)
[2022-06-22 18:18] LABS: CREATININE 1.6 mg/dL (0.55-1.3)
[2022-06-22 18:19] LABS: BILIRUBIN,TOTAL 0.5 mg/dL (0.2-1); TOT PROT 8.5 g/dl (6.4-8.2)
[2022-06-22] MEDS: PRENATAL VITAMINS W/ FOLIC ACID TABLET (FP) PO SCH (18:29)
[2022-06-22] MEDS: MELATONIN 5 MG TABLETS PO SCH (21:25)
[2022-06-22] MEDS: THIAMINE HCL 100 MG TABLET (FP) PO SCH (21:25)
[2022-06-22] MEDS: INSULIN (LEVEMIR) 100 UNITS/ML UNITS SQ SCH (21:26)
[2022-06-23] MEDS: metFORMIN HCL 500 MG TABLET (FP) PO SCH (06:26)
[2022-06-23] MEDS ORDERED: methaDONE HCL 10 MG TABLET PO SCH (08:15)
[2022-06-23] MEDS ORDERED: methaDONE HCL 40 MG DISPERSABLE TABLET PO SCH (10:00)
[2022-06-23] MEDS: PRENATAL VITAMINS W/ FOLIC ACID TABLET (FP) PO SCH (10:02)
[2022-06-23] MEDS: THIAMINE HCL 100 MG TABLET (FP) PO SCH (21:26)
[2022-06-23] MEDS: MELATONIN 5 MG TABLETS PO SCH (21:26)
[2022-06-23] MEDS: INSULIN (LEVEMIR) 100 UNITS/ML UNITS SQ SCH (21:28)
[2022-06-24] MEDS: metFORMIN HCL 500 MG TABLET (FP) PO SCH (06:48)
[2022-06-24] MEDS: PRENATAL VITAMINS W/ FOLIC ACID TABLET (FP) PO SCH (09:44)
[2022-06-24] MEDS: MELATONIN 5 MG TABLETS PO SCH (21:37)
[2022-06-24] MEDS: THIAMINE HCL 100 MG TABLET (FP) PO SCH (21:37)
[2022-06-24] MEDS: INSULIN (LEVEMIR) 100 UNITS/ML UNITS SQ SCH (21:38)
[2022-06-25] MEDS: metFORMIN HCL 500 MG TABLET (FP) PO SCH (06:28)
[2022-06-25] MEDS: PRENATAL VITAMINS W/ FOLIC ACID TABLET (FP) PO SCH (10:41)
[2022-06-25] MEDS: FLUTICASONE/SALMETEROL 100 MCG/50 MCG DISKUS IH SCH (21:38)
[2022-06-25] MEDS: INSULIN (LEVEMIR) 100 UNITS/ML UNITS SQ SCH (21:38)
[2022-06-25] MEDS: MELATONIN 5 MG TABLETS PO SCH (21:39)
[2022-06-25] MEDS: THIAMINE HCL 100 MG TABLET (FP) PO SCH (21:39)
[2022-06-25] MEDS: APIXABAN 5 MG TABLET PO SCH (21:39)
[2022-06-25] MEDS: ATORVASTATIN CA 20 MG TABLET (FP) PO SCH (21:39)
[2022-06-26] MEDS ORDERED: INSULIN (LEVEMIR) 100 UNITS/ML UNITS SQ ONE ×2 (04:57→21:45)
[2022-06-26] MEDS: metFORMIN HCL 500 MG TABLET (FP) PO SCH (06:29)
[2022-06-26] MEDS: PRENATAL VITAMINS W/ FOLIC ACID TABLET (FP) PO SCH (09:49)
[2022-06-26] MEDS: FLUTICASONE/SALMETEROL 100 MCG/50 MCG DISKUS IH SCH ×2 (09:49→21:34)
[2022-06-26] MEDS: APIXABAN 5 MG TABLET PO SCH ×2 (09:49→21:32)
[2022-06-26] MEDS: MELATONIN 5 MG TABLETS PO SCH (21:32)
[2022-06-26] MEDS: THIAMINE HCL 100 MG TABLET (FP) PO SCH (21:32)
[2022-06-26] MEDS: ATORVASTATIN CA 20 MG TABLET (FP) PO SCH (21:32)
[2022-06-26] MEDS: INSULIN (LEVEMIR) 100 UNITS/ML UNITS SQ SCH (21:33)
[2022-06-26] MEDS ORDERED: INSULIN (NOVOLOG) ASPART 100 UNITS/ML 10ML VIAL ONE (21:45)
[2022-06-27] MEDS: metFORMIN HCL 500 MG TABLET (FP) PO SCH (06:22)
[2022-06-27] MEDS: FLUTICASONE/SALMETEROL 100 MCG/50 MCG DISKUS IH SCH ×2 (09:46→21:10)
[2022-06-27] MEDS: PRENATAL VITAMINS W/ FOLIC ACID TABLET (FP) PO SCH (09:46)
[2022-06-27] MEDS: APIXABAN 5 MG TABLET PO SCH ×2 (09:46→21:10)
[2022-06-27] MEDS: LACTULOSE 20 GM/30 ML UDC (FOR ORAL USE ONLY) PO SCH ×2 (13:13→21:10)
[2022-06-27] MEDS: MELATONIN 5 MG TABLETS PO SCH (21:09)
[2022-06-27] MEDS: THIAMINE HCL 100 MG TABLET (FP) PO SCH (21:09)
[2022-06-27] MEDS: INSULIN (LEVEMIR) 100 UNITS/ML UNITS SQ SCH (21:12)
[2022-06-27] MEDS: ATORVASTATIN CA 20 MG TABLET (FP) PO SCH (21:12)
[2022-06-28] MEDS: LACTULOSE 20 GM/30 ML UDC (FOR ORAL USE ONLY) PO SCH ×3 (06:35→21:36)
[2022-06-28] MEDS: metFORMIN HCL 500 MG TABLET (FP) PO SCH (06:36)
[2022-06-28] MEDS: APIXABAN 5 MG TABLET PO SCH ×2 (10:19→21:36)
[2022-06-28] MEDS: FLUTICASONE/SALMETEROL 100 MCG/50 MCG DISKUS IH SCH ×2 (10:19→21:36)
[2022-06-28] MEDS: PRENATAL VITAMINS W/ FOLIC ACID TABLET (FP) PO SCH (10:19)
[2022-06-28] MEDS: MELATONIN 5 MG TABLETS PO SCH (21:35)
[2022-06-28] MEDS: THIAMINE HCL 100 MG TABLET (FP) PO SCH (21:35)
[2022-06-28] MEDS: ATORVASTATIN CA 20 MG TABLET (FP) PO SCH (21:36)
[2022-06-28] MEDS: INSULIN (LEVEMIR) 100 UNITS/ML UNITS SQ SCH (21:37)
[2022-06-29] MEDS: LACTULOSE 20 GM/30 ML UDC (FOR ORAL USE ONLY) PO SCH ×3 (06:40→22:18)
[2022-06-29] MEDS: metFORMIN HCL 500 MG TABLET (FP) PO SCH (06:40)
[2022-06-29] MEDS: APIXABAN 5 MG TABLET PO SCH ×2 (09:44→21:38)
[2022-06-29] MEDS: PRENATAL VITAMINS W/ FOLIC ACID TABLET (FP) PO SCH (09:44)
[2022-06-29] MEDS: FLUTICASONE/SALMETEROL 100 MCG/50 MCG DISKUS IH SCH ×2 (09:45→22:18)
[2022-06-29] MEDS: THIAMINE HCL 100 MG TABLET (FP) PO SCH (21:38)
[2022-06-29] MEDS: ATORVASTATIN CA 20 MG TABLET (FP) PO SCH (21:38)
[2022-06-29] MEDS: MELATONIN 5 MG TABLETS PO SCH (21:38)
[2022-06-29] MEDS: INSULIN (LEVEMIR) 100 UNITS/ML UNITS SQ SCH (22:18)
[2022-06-30] MEDS: LACTULOSE 20 GM/30 ML UDC (FOR ORAL USE ONLY) PO SCH ×3 (06:33→21:19)
[2022-06-30] MEDS: metFORMIN HCL 500 MG TABLET (FP) PO SCH (06:33)
[2022-06-30] MEDS: APIXABAN 5 MG TABLET PO SCH ×2 (10:19→21:19)
[2022-06-30] MEDS: PRENATAL VITAMINS W/ FOLIC ACID TABLET (FP) PO SCH (10:19)
[2022-06-30] MEDS: FLUTICASONE/SALMETEROL 100 MCG/50 MCG DISKUS IH SCH ×2 (10:30→21:21)
[2022-06-30] MEDS: LISINOPRIL 5 MG TABLET PO SCH ×2 (17:15→17:18)
[2022-06-30] MEDS: MELATONIN 5 MG TABLETS PO SCH (21:18)
[2022-06-30] MEDS: THIAMINE HCL 100 MG TABLET (FP) PO SCH (21:18)
[2022-06-30] MEDS: ATORVASTATIN CA 20 MG TABLET (FP) PO SCH (21:19)
[2022-06-30] MEDS: INSULIN (LEVEMIR) 100 UNITS/ML UNITS SQ SCH (21:21)
[2022-07-01] MEDS ORDERED: methaDONE HCL 10 MG TABLET PO SCH (06:00)
[2022-07-01] MEDS: LACTULOSE 20 GM/30 ML UDC (FOR ORAL USE ONLY) PO SCH ×3 (06:21→21:12)
[2022-07-01] MEDS: metFORMIN HCL 500 MG TABLET (FP) PO SCH (06:23)
[2022-07-01] MEDS: FLUTICASONE/SALMETEROL 100 MCG/50 MCG DISKUS IH SCH ×2 (09:56→21:12)
[2022-07-01] MEDS: APIXABAN 5 MG TABLET PO SCH ×2 (09:56→21:13)
[2022-07-01] MEDS: PRENATAL VITAMINS W/ FOLIC ACID TABLET (FP) PO SCH (09:56)
[2022-07-01] MEDS: LISINOPRIL 5 MG TABLET PO SCH (09:58)
[2022-07-01] MEDS: THIAMINE HCL 100 MG TABLET (FP) PO SCH (21:12)
[2022-07-01] MEDS: ATORVASTATIN CA 20 MG TABLET (FP) PO SCH (21:13)
[2022-07-01] MEDS: SUVOREXANT 10 MG TABLET PO PRN (21:14)
[2022-07-01] MEDS: INSULIN (LEVEMIR) 100 UNITS/ML UNITS SQ SCH (21:15)
[2022-07-02] MEDS: LACTULOSE 20 GM/30 ML UDC (FOR ORAL USE ONLY) PO SCH ×3 (06:20→21:24)
[2022-07-02] MEDS: metFORMIN HCL 500 MG TABLET (FP) PO SCH (07:08)
[2022-07-02] MEDS: PRENATAL VITAMINS W/ FOLIC ACID TABLET (FP) PO SCH (09:35)
[2022-07-02] MEDS: APIXABAN 5 MG TABLET PO SCH ×2 (09:35→21:23)
[2022-07-02] MEDS: FLUTICASONE/SALMETEROL 100 MCG/50 MCG DISKUS IH SCH ×2 (09:36→21:22)
[2022-07-02 10:26] LABS: CALCIUM 8.5 mg/dL (8.5-10.1)
[2022-07-02 10:27] LABS: BLOOD UREA NITROGEN 18.3 mg/dL (7-18)
[2022-07-02 10:32] LABS: BILIRUBIN,TOTAL 0.2 mg/dL (0.2-1); CREATININE 1.1 mg/dL (0.55-1.3); TOT PROT 7.1 g/dl (6.4-8.2)
[2022-07-02] MEDS: THIAMINE HCL 100 MG TABLET (FP) PO SCH (21:21)
[2022-07-02] MEDS: ATORVASTATIN CA 20 MG TABLET (FP) PO SCH (21:23)
[2022-07-02] MEDS: INSULIN (LEVEMIR) 100 UNITS/ML UNITS SQ SCH (21:24)
[2022-07-02] MEDS: SUVOREXANT 10 MG TABLET PO PRN (21:25)
[2022-07-03] MEDS: LACTULOSE 20 GM/30 ML UDC (FOR ORAL USE ONLY) PO SCH ×3 (06:26→21:16)
[2022-07-03] MEDS: metFORMIN HCL 500 MG TABLET (FP) PO SCH (06:29)
[2022-07-03] MEDS: PRENATAL VITAMINS W/ FOLIC ACID TABLET (FP) PO SCH (09:54)
[2022-07-03] MEDS: APIXABAN 5 MG TABLET PO SCH ×2 (09:54→21:17)
[2022-07-03] MEDS: FLUTICASONE/SALMETEROL 100 MCG/50 MCG DISKUS IH SCH ×2 (09:54→21:40)
[2022-07-03] MEDS: ATORVASTATIN CA 20 MG TABLET (FP) PO SCH (21:16)
[2022-07-03] MEDS: THIAMINE HCL 100 MG TABLET (FP) PO SCH (21:17)
[2022-07-03] MEDS: INSULIN (LEVEMIR) 100 UNITS/ML UNITS SQ SCH (21:40)
[2022-07-04] MEDS: metFORMIN HCL 500 MG TABLET (FP) PO SCH (06:38)
[2022-07-04] MEDS: LACTULOSE 20 GM/30 ML UDC (FOR ORAL USE ONLY) PO SCH ×3 (06:38→21:10)
[2022-07-04] MEDS: PRENATAL VITAMINS W/ FOLIC ACID TABLET (FP) PO SCH (09:58)
[2022-07-04] MEDS: APIXABAN 5 MG TABLET PO SCH ×2 (09:58→21:10)
[2022-07-04] MEDS: FLUTICASONE/SALMETEROL 100 MCG/50 MCG DISKUS IH SCH ×2 (09:58→21:10)
[2022-07-04] MEDS: THIAMINE HCL 100 MG TABLET (FP) PO SCH (21:09)
[2022-07-04] MEDS: ATORVASTATIN CA 20 MG TABLET (FP) PO SCH (21:10)
[2022-07-04] MEDS: INSULIN (LEVEMIR) 100 UNITS/ML UNITS SQ SCH (21:12)
[2022-07-04] MEDS ORDERED: SUVOREXANT 10 MG TABLET PO PRN (22:00)
[2022-07-05] MEDS: LACTULOSE 20 GM/30 ML UDC (FOR ORAL USE ONLY) PO SCH ×3 (06:31→21:15)
[2022-07-05] MEDS: metFORMIN HCL 500 MG TABLET (FP) PO SCH (06:34)
[2022-07-05] MEDS: PRENATAL VITAMINS W/ FOLIC ACID TABLET (FP) PO SCH (09:54)
[2022-07-05] MEDS: FLUTICASONE/SALMETEROL 100 MCG/50 MCG DISKUS IH SCH ×2 (09:54→21:14)
[2022-07-05] MEDS: APIXABAN 5 MG TABLET PO SCH ×2 (09:54→21:13)
[2022-07-05] MEDS: ATORVASTATIN CA 20 MG TABLET (FP) PO SCH (21:13)
[2022-07-05] MEDS: THIAMINE HCL 100 MG TABLET (FP) PO SCH (21:13)
[2022-07-05] MEDS: INSULIN (LEVEMIR) 100 UNITS/ML UNITS SQ SCH (21:16)
[2022-07-05] MEDS ORDERED: SUVOREXANT 15 MG TABLET PO PRN (22:00)
[2022-07-06] MEDS: LACTULOSE 20 GM/30 ML UDC (FOR ORAL USE ONLY) PO SCH ×3 (06:30→21:27)
[2022-07-06] MEDS: metFORMIN HCL 500 MG TABLET (FP) PO SCH (06:30)
[2022-07-06] MEDS: APIXABAN 5 MG TABLET PO SCH ×2 (09:51→21:25)
[2022-07-06] MEDS: PRENATAL VITAMINS W/ FOLIC ACID TABLET (FP) PO SCH (09:51)
[2022-07-06] MEDS: FLUTICASONE/SALMETEROL 100 MCG/50 MCG DISKUS IH SCH ×2 (09:52→21:28)
[2022-07-06] MEDS: THIAMINE HCL 100 MG TABLET (FP) PO SCH (21:25)
[2022-07-06] MEDS: ATORVASTATIN CA 20 MG TABLET (FP) PO SCH (21:25)
[2022-07-06] MEDS: INSULIN (LEVEMIR) 100 UNITS/ML UNITS SQ SCH (21:28)
[2022-07-06] MEDS ORDERED: INSULIN (LEVEMIR) 100 UNITS/ML UNITS SQ ONE (21:48)
[2022-07-07] MEDS: LACTULOSE 20 GM/30 ML UDC (FOR ORAL USE ONLY) PO SCH ×3 (06:48→21:43)
[2022-07-07] MEDS: metFORMIN HCL 500 MG TABLET (FP) PO SCH (06:49)
[2022-07-07] MEDS: PRENATAL VITAMINS W/ FOLIC ACID TABLET (FP) PO SCH (09:38)
[2022-07-07] MEDS: APIXABAN 5 MG TABLET PO SCH ×2 (09:38→21:42)
[2022-07-07] MEDS: FLUTICASONE/SALMETEROL 100 MCG/50 MCG DISKUS IH SCH ×2 (09:38→21:43)
[2022-07-07] MEDS: hydrOXYzine PAMOATE 25 MG CAPSULE (FP) PO PRN ×2 (09:39→21:42)
[2022-07-07] MEDS: THIAMINE HCL 100 MG TABLET (FP) PO SCH (21:42)
[2022-07-07] MEDS: INSULIN (LEVEMIR) 100 UNITS/ML UNITS SQ SCH (21:42)
[2022-07-07] MEDS: ATORVASTATIN CA 20 MG TABLET (FP) PO SCH (21:42)
[2022-07-07] MEDS ORDERED: SUVOREXANT 15 MG TABLET PO PRN (22:00)
[2022-07-08] MEDS: metFORMIN HCL 500 MG TABLET (FP) PO SCH (06:36)
[2022-07-08] MEDS: LACTULOSE 20 GM/30 ML UDC (FOR ORAL USE ONLY) PO SCH ×3 (06:36→22:20)
[2022-07-08] MEDS: PRENATAL VITAMINS W/ FOLIC ACID TABLET (FP) PO SCH (09:35)
[2022-07-08] MEDS: APIXABAN 5 MG TABLET PO SCH ×2 (09:35→21:35)
[2022-07-08] MEDS: FLUTICASONE/SALMETEROL 100 MCG/50 MCG DISKUS IH SCH ×2 (09:35→22:20)
[2022-07-08] MEDS: THIAMINE HCL 100 MG TABLET (FP) PO SCH (21:35)
[2022-07-08] MEDS: ATORVASTATIN CA 20 MG TABLET (FP) PO SCH (21:35)
[2022-07-08] MEDS: hydrOXYzine PAMOATE 25 MG CAPSULE (FP) PO PRN (21:35)
[2022-07-08] MEDS: INSULIN (LEVEMIR) 100 UNITS/ML UNITS SQ SCH (22:21)
[2022-07-09] MEDS: LACTULOSE 20 GM/30 ML UDC (FOR ORAL USE ONLY) PO SCH ×3 (06:40→21:38)
[2022-07-09] MEDS: metFORMIN HCL 500 MG TABLET (FP) PO SCH (06:40)
[2022-07-09] MEDS: FLUTICASONE/SALMETEROL 100 MCG/50 MCG DISKUS IH SCH ×2 (09:58→21:38)
[2022-07-09] MEDS: PRENATAL VITAMINS W/ FOLIC ACID TABLET (FP) PO SCH (09:58)
[2022-07-09] MEDS: APIXABAN 5 MG TABLET PO SCH ×2 (09:58→21:37)
[2022-07-09] MEDS: hydrOXYzine PAMOATE 25 MG CAPSULE (FP) PO PRN (21:37)
[2022-07-09] MEDS: INSULIN (LEVEMIR) 100 UNITS/ML UNITS SQ SCH (21:37)
[2022-07-09] MEDS: THIAMINE HCL 100 MG TABLET (FP) PO SCH (21:37)
[2022-07-09] MEDS: ATORVASTATIN CA 20 MG TABLET (FP) PO SCH (21:37)
[2022-07-10] MEDS: LACTULOSE 20 GM/30 ML UDC (FOR ORAL USE ONLY) PO SCH ×3 (06:22→21:17)
[2022-07-10] MEDS: metFORMIN HCL 500 MG TABLET (FP) PO SCH (06:24)
[2022-07-10] MEDS: APIXABAN 5 MG TABLET PO SCH ×2 (10:00→21:17)
[2022-07-10] MEDS: PRENATAL VITAMINS W/ FOLIC ACID TABLET (FP) PO SCH (10:00)
[2022-07-10] MEDS: FLUTICASONE/SALMETEROL 100 MCG/50 MCG DISKUS IH SCH ×2 (10:00→21:19)
[2022-07-10] MEDS: THIAMINE HCL 100 MG TABLET (FP) PO SCH (21:16)
[2022-07-10] MEDS: ATORVASTATIN CA 20 MG TABLET (FP) PO SCH (21:17)
[2022-07-10] MEDS: INSULIN (LEVEMIR) 100 UNITS/ML UNITS SQ SCH (21:20)
[2022-07-10] MEDS: hydrOXYzine PAMOATE 25 MG CAPSULE (FP) PO PRN (21:50)
[2022-07-10] MEDS: SUVOREXANT 15 MG TABLET PO PRN (21:50)
[2022-07-11] MEDS: LACTULOSE 20 GM/30 ML UDC (FOR ORAL USE ONLY) PO SCH ×3 (06:26→21:27)
[2022-07-11] MEDS: metFORMIN HCL 500 MG TABLET (FP) PO SCH (06:27)
[2022-07-11] MEDS: hydrOXYzine PAMOATE 25 MG CAPSULE (FP) PO PRN ×2 (06:32→21:26)
[2022-07-11] MEDS: APIXABAN 5 MG TABLET PO SCH ×2 (09:44→21:25)
[2022-07-11] MEDS: FLUTICASONE/SALMETEROL 100 MCG/50 MCG DISKUS IH SCH ×2 (09:44→21:25)
[2022-07-11] MEDS: PRENATAL VITAMINS W/ FOLIC ACID TABLET (FP) PO SCH (09:45)
[2022-07-11] MEDS: THIAMINE HCL 100 MG TABLET (FP) PO SCH (21:25)
[2022-07-11] MEDS: ATORVASTATIN CA 20 MG TABLET (FP) PO SCH (21:25)
[2022-07-11] MEDS: SUVOREXANT 15 MG TABLET PO PRN (21:26)
[2022-07-11] MEDS: INSULIN (LEVEMIR) 100 UNITS/ML UNITS SQ SCH (21:27)
[2022-07-12] MEDS: LACTULOSE 20 GM/30 ML UDC (FOR ORAL USE ONLY) PO SCH ×3 (06:37→21:34)
[2022-07-12] MEDS: metFORMIN HCL 500 MG TABLET (FP) PO SCH (06:37)
[2022-07-12] MEDS: PRENATAL VITAMINS W/ FOLIC ACID TABLET (FP) PO SCH (09:51)
[2022-07-12] MEDS: FLUTICASONE/SALMETEROL 100 MCG/50 MCG DISKUS IH SCH ×2 (09:51→21:36)
[2022-07-12] MEDS: APIXABAN 5 MG TABLET PO SCH ×2 (09:51→21:34)
[2022-07-12] MEDS: ATORVASTATIN CA 20 MG TABLET (FP) PO SCH (21:34)
[2022-07-12] MEDS: THIAMINE HCL 100 MG TABLET (FP) PO SCH (21:34)
[2022-07-12] MEDS: hydrOXYzine PAMOATE 25 MG CAPSULE (FP) PO PRN (21:36)
[2022-07-12] MEDS: SUVOREXANT 15 MG TABLET PO PRN (21:36)
[2022-07-12] MEDS: INSULIN (LEVEMIR) 100 UNITS/ML UNITS SQ SCH (22:28)
[2022-07-13] MEDS: LACTULOSE 20 GM/30 ML UDC (FOR ORAL USE ONLY) PO SCH ×3 (06:46→21:31)
[2022-07-13] MEDS: metFORMIN HCL 500 MG TABLET (FP) PO SCH (06:48)
[2022-07-13] MEDS: APIXABAN 5 MG TABLET PO SCH ×2 (09:59→21:31)
[2022-07-13] MEDS: PRENATAL VITAMINS W/ FOLIC ACID TABLET (FP) PO SCH (09:59)
[2022-07-13] MEDS: FLUTICASONE/SALMETEROL 100 MCG/50 MCG DISKUS IH SCH ×2 (09:59→21:32)
[2022-07-13] MEDS: hydrOXYzine PAMOATE 25 MG CAPSULE (FP) PO PRN ×2 (10:00→21:31)
[2022-07-13] MEDS: SUVOREXANT 15 MG TABLET PO PRN (21:30)
[2022-07-13] MEDS: ATORVASTATIN CA 20 MG TABLET (FP) PO SCH (21:31)
[2022-07-13] MEDS: THIAMINE HCL 100 MG TABLET (FP) PO SCH (21:31)
[2022-07-13] MEDS: INSULIN (LEVEMIR) 100 UNITS/ML UNITS SQ SCH (21:32)
[2022-07-14] MEDS: metFORMIN HCL 500 MG TABLET (FP) PO SCH (06:51)
[2022-07-14] MEDS: LACTULOSE 20 GM/30 ML UDC (FOR ORAL USE ONLY) PO SCH ×3 (06:52→21:24)
[2022-07-14] MEDS: APIXABAN 5 MG TABLET PO SCH ×2 (09:41→21:24)
[2022-07-14] MEDS: PRENATAL VITAMINS W/ FOLIC ACID TABLET (FP) PO SCH (09:41)
[2022-07-14] MEDS: FLUTICASONE/SALMETEROL 100 MCG/50 MCG DISKUS IH SCH ×2 (09:41→21:28)
[2022-07-14] MEDS: THIAMINE HCL 100 MG TABLET (FP) PO SCH (21:24)
[2022-07-14] MEDS: SUVOREXANT 15 MG TABLET PO PRN (21:24)
[2022-07-14] MEDS: ATORVASTATIN CA 20 MG TABLET (FP) PO SCH (21:24)
[2022-07-14] MEDS: hydrOXYzine PAMOATE 25 MG CAPSULE (FP) PO PRN (21:24)
[2022-07-14] MEDS: INSULIN (LEVEMIR) 100 UNITS/ML UNITS SQ SCH (21:28)
[2022-07-14] MEDS ORDERED: INSULIN (LEVEMIR) 100 UNITS/ML UNITS SQ ONE (22:08)
[2022-07-15] MEDS: metFORMIN HCL 500 MG TABLET (FP) PO SCH (06:29)
[2022-07-15] MEDS: LACTULOSE 20 GM/30 ML UDC (FOR ORAL USE ONLY) PO SCH ×3 (06:30→21:26)
[2022-07-15] MEDS: PRENATAL VITAMINS W/ FOLIC ACID TABLET (FP) PO SCH (10:09)
[2022-07-15] MEDS: FLUTICASONE/SALMETEROL 100 MCG/50 MCG DISKUS IH SCH ×2 (10:09→21:27)
[2022-07-15] MEDS: APIXABAN 5 MG TABLET PO SCH ×2 (10:09→21:27)
[2022-07-15] MEDS: THIAMINE HCL 100 MG TABLET (FP) PO SCH (21:26)
[2022-07-15] MEDS: hydrOXYzine PAMOATE 25 MG CAPSULE (FP) PO PRN (21:27)
[2022-07-15] MEDS: ATORVASTATIN CA 20 MG TABLET (FP) PO SCH (21:27)
[2022-07-15] MEDS: SUVOREXANT 15 MG TABLET PO PRN (21:27)
[2022-07-15] MEDS: INSULIN (LEVEMIR) 100 UNITS/ML UNITS SQ SCH (21:29)
[2022-07-16] MEDS: LACTULOSE 20 GM/30 ML UDC (FOR ORAL USE ONLY) PO SCH (06:35)
[2022-07-16] MEDS: metFORMIN HCL 500 MG TABLET (FP) PO SCH (06:36)
[2022-07-16 06:59] VITALS: BP 130/84; PULSE 57; RESP 17; TEMP 96.8
[2022-07-16] MEDS: APIXABAN 5 MG TABLET PO SCH (09:21)
[2022-07-16] MEDS: PRENATAL VITAMINS W/ FOLIC ACID TABLET (FP) PO SCH (09:21)
[2022-07-16] MEDS: hydrOXYzine PAMOATE 25 MG CAPSULE (FP) PO PRN (09:22)
[2022-07-16] MEDS: FLUTICASONE/SALMETEROL 100 MCG/50 MCG DISKUS IH SCH (09:22)
== END 2022-07-16 09:30 | disposition home or self-care (01) | DRG 772 ==
LOC: YASAS 12:00 → Y3E 16:25
PROVIDERS: ADMIT Allergy & Immunology; ATTEND Surgery
PROC: HZ42ZZZ Group Counseling for Substance Abuse Treatment, Cognitive-Behavioral (ICD-10-PCS; principal; 2022-06-22)
DX: F11.20 Opioid dependence, uncomplicated (principal); F14.20 Cocaine dependence, uncomplicated; F10.20 Alcohol dependence, uncomplicated; F13.10 Sedative, hypnotic or anxiolytic abuse, uncomplicated; F17.210 Nicotine dependence, cigarettes, uncomplicated; F19.282 Other psychoactive substance dependence with psychoactive substance-induced sleep disorder; B19.20 Unspecified viral hepatitis C without hepatic coma; E11.9 Type 2 diabetes mellitus without complications; Z79.4 Long term (current) use of insulin; Z28.310 Unvaccinated for COVID-19; Z28.9 Immunization not carried out for unspecified reason; Z56.0 Unemployment, unspecified; Z59.00 Homelessness unspecified
CPT/HCPCS: 36415; 80053; 82140; 82962; 85027; 86780; C9803-CS; U0003; U0005